=== PATIENT | male | born 1960 | race Caucasian/White ===

== ENCOUNTER 2018-06-05 09:30 | Inpatient (IN) ==
[2018-06-10] MEDS ORDERED: Chlorhexidine Gluconate 2% 1 Pack (2 Cloths) TOPICAL SCH (08:13)
[2018-06-10] MEDS ORDERED: Metoprolol Tartrate 25 MG Tablet PO SCH (08:13)
[2018-06-10] MEDS ORDERED: Chlorhexidine 4% Topical 120 APPLIC/120 ML Bottle TOPICAL SCH (08:15)
[2018-06-10] MEDS ORDERED: Sodium Chlor 0.9% Inj 60 ML, Bupivacaine Liposo PF 1.3% Inj 20 ML P-ARTICULR ONE ×2 (08:15)
[2018-06-10] MEDS ORDERED: Sodium Chlor 0.9% Inj 500 ML IV.SIG SCH (09:00)
[2018-06-10] MEDS ORDERED: Vancomycin Inj 1,000 MG in Sodium Chlor 0.9% Inj 250 ML IV.SIG SCH (09:00)
[2018-06-10] MEDS ORDERED: ceFAZolin 2 GM Premix Inj 2 GM/50 ML PIGGYBACK IV.SIG SCH (09:00)
[2018-06-10] MEDS ORDERED: Sodium Chlor 0.9% Inj 60 ML, Bupivacaine Liposo PF 1.3% Inj 20 ML, Bupivacaine/Epi PF 0... P-ARTICULR SCH ×3 (10:00)
[2018-06-10] MEDS ORDERED: SODIUM CHLOR 0.9% IV.SIG SCH (10:00)
[2018-06-10] MEDS ORDERED: TRANEXAMIC ACID IV.SIG SCH (10:00)
[2018-06-10] MEDS ORDERED: Post-op Orders (for Pharmacy) OTHER STA (13:29)
[2018-06-10] MEDS ORDERED: Temazepam 15 MG Capsule PO PRN (13:29)
[2018-06-10] MEDS ORDERED: Morphine Inj 4 MG/ML Vial IV.PUSH PRN (13:29)
[2018-06-10] MEDS ORDERED: Bisacodyl 10 MG Supp RECTAL PRN (13:29)
--- NOTE | 2018-06-10 13:33 | P.OP ---
- Preoperative Diagnosis (1) Osteoarthritis of left hip - Postoperative Diagnosis (1) Osteoarthritis of left hip Date of procedure: 06/10/18 Procedure: Left total hip arthroplasty, direct anterior exposure Anesthesia: GETA Surgeon: Wade Saldana MD Database Programmer Analyst: Mini Peacock PA-C Operation and Findings: EBL: 250 cc INDICATION: This patient is a 58-year-old male with severe bilateral hip pain related to acetabular impingement with severe osteoarthritis. He presents for surgical treatment. NOTE: Mini Peacock PA-C was present for the entire surgical procedure as my first assist. In my medical opinion her skill and care was necessary for the proper management of this patient. COMPONENTS: COMPANY: [employer] CUP: [place], 56 mm, 100 series STEM: [place], size 12, high offset HEAD: Ceramic, 36 mm, +5, 12/14 taper LINER: Polyethylene, 36, neutral, Altrex PROCEDURE: This patient was brought to the operating room and anesthetized in the supine position. The patient was positioned on the [place] table with the operative leg extended and the contralateral leg held position. The hip and leg was scrubbed with alcohol followed by Hibiclens followed by ChloraPrep and draped sterilely in the clean air suite. Preoperative fluoroscopic images were utilized. A templating x-ray was obtained and printed to be used during the case. A timeout was done and antibiotics were given within a routine time window. A 4 inch incision was made starting 2 cm distal and 2 cm lateral to the anterior superior iliac spine. The tensor fascia jimmy fascia was identified and opened longitudinally in line with the incision. Deep retraction allowed good visualization in the interval between the tensor fascia jimmy and the rectus and this was opened further. The posterior fascia was opened. Crossing vessels were coagulated appropriately. The anterior aspect of the hip capsule was identified. Retractors were placed above and below the capsule. The capsule was opened longitudinally. Stay sutures were utilized creating flaps for the anterior capsule. The femoral neck was cut at the right location and completed with an oscillating saw. The head and neck was removed and taken to the back table. The leg was externally rotated 60 degrees and traction placed on the extremity. The labrum was excised. A portion of the capsule was excised. Visibility was excellent. Retractors were positioned. Starting 6 mm from the final size reamer, we began reaming up to 1 mm from the anticipated size. This was visualized under fluoroscopy. A trial cup was positioned. This also was visualized under fluoroscopy and minor adjustments were made. The final preparation with a 56 reamer was utilized. The final cup was positioned in approximately 40 degrees of abduction and 20 degrees of forward flexion. This is visualized under fluoroscopy and was seated into the final position. Position was very satisfactory. A single hole eliminator was positioned followed by the plastic liner. The final solution was excellent. Traction was let off. The leg was brought into neutral rotation. A lifting took was positioned underneath the greater trochanter and proximal femur. The leg was maximally X rotated and the foot drop to the floor across midline. Retractors were positioned. A box osteotome was used to gain entrance into the top of the femur. The canal was probed with a finder to ensure that we are within the canal. Successive broaching up to the final stem size was accomplished. Trial reduction showed excellent balancing. Adjustments were made. The wound was irrigated copiously and the canal irrigated. The final stem was inserted in proper orientation. Trial again was trialed and the final head side was impacted. The hip was reduced and with 60 degrees of external rotation the leg to be dropped to the floor without evidence of anterior subluxation. Intraoperative x-rays were obtained. Local anesthesia was utilized for a field block including posterior capsule, inferior capsule, cephalad capsule, region of the greater trochanter, tensor fascia jimmy and subcutaneous tissue. The anterior capsule was repaired with interrupted #2 Tycron sutures. The fascia was run with 0 PDS on a loop. Subcutaneous tissue was approximated 2-0 Vicryl suture and skin with running intradermal 3-0 Vicryl followed by benzoin and Steri-Strips. A sterile dressing was applied. The patient was awakened and taken to the recovery room in satisfactory condition FINDINGS: There was severe osteoarthritis with large circumferential osteophytes around the acetabulum. The final solution appeared to be excellent. There is no complication that was appreciated.
--- NOTE | 2018-06-10 13:34 | P.DCO ---
- Physical Therapy Physical Therapy: Gait training (3 times weekly for 2 weeks) Hip: Total hip Left Lower Extremity Weight Bearing: Weight bearing as tolerated - Nursing Dressing changes: Do not change dressing - Certification Need for Home Health services: I have seen patient Magdalene Davidson on 06/10/18. My clinical findings support the need for the requested home health care services because: Homebound Certification: I certify that my clinical findings support that this patient is homebound because:
[2018-06-10] MEDS ORDERED: *morphine SULFATE 10 MG/ML PERIprocedure ONLY ONE ×2 (13:44→14:08)
[2018-06-10] MEDS ORDERED: fentaNYL Citrate Inj 100 MCG/2 ML Ampul ONE (13:46)
--- NOTE | 2018-06-10 14:02 | XR ---
EXAM DATE: 06/10/2018 1:42 PM EST AGE/SEX: 58 years / Male INDICATIONS: Left total hip replacement. CLINICAL DATA: This is the patient's initial encounter. Patient reports that signs and symptoms have been present for 1 day and indicates a pain score of Nonresponsive. MEDICAL/SURGICAL HISTORY: None. None. COMPARISON: No prior exams available for comparison. FINDINGS: Post surgical changes following hip replacement are noted. Acetabular and femoral components are well seated and satisfactorily aligned. There are no acute bony abnormalities. CONCLUSION: Satisfactory postoperative appearance of the left hip status post replacement. Electronically signed by: Alfredo Archibald MD 06/10/2018 2:00 PM EST
[2018-06-10] MEDS: ceFAZolin 1 GM Premix Inj 1 GM/50 ML FROZ.PIGGY IV.SIG SCH (18:08)
[2018-06-10] MEDS: Senna/Docusate Sodium 8.6/50 MG Tablet PO SCH (20:42)
[2018-06-10] MEDS: Multivitamin/Minerals Therapeutic Tablet PO SCH (20:42)
--- NOTE | 2018-06-10 21:23 | P.DS ---
Date of admission: 06/10/18 07:49 Primary care physician: Ric Hilario MD Attending physician on discharge: Wade Saldana Anticipated date of discharge: 06/11/18 Brief History from admission: Mr. Davidson has had ongoing hip pain for... DS: Diagnosis - Discharge Diagnosis (1) Osteoarthritis of left hip Status: Acute DS: Medications - Discharge Medications Prescriptions: hydrocodone-acetaminophen 1 tab PO Q4H PRN #42 tab PRN Reason: Acute Pain DS: Summary Hospital Course: Surgical treatment was performed on the day of admission without complication. He recovered well in PACU and was transferred to the orthopaedic floor. Pain was controlled with IV and oral medications. He was compliant with physical therapy and all total joint precautions. After __ days he was found to be stable and discharged home with home health care. He was given instruction to continue his therapy, to pursue a high fiber diet and to ice the operative limb twice daily. He was given prescriptions for [place] and ASA. - Time Spent with Patient Total time spent providing and/or coordinating discharge services: Greater than 30 minutes - Quality: VTE Deep Vein Thrombosis/Pulmonary Embolism Present on Admission: No Exam Vital signs: Vital Signs 06/10/18 08:58 06/10/18 13:41 06/10/18 13:45 Temperature 98.0 F 97.7 F Pulse Rate 61 87 76 Respiratory Rate 20 21 21 Blood Pressure 142/89 H 129/82 129/82 Pulse Oximetry 96 96 95 06/10/18 14:00 06/10/18 14:15 06/10/18 14:30 Temperature 98.0 F Pulse Rate 65 69 72 Respiratory Rate 20 21 23 Blood Pressure 140/87 127/77 144/82 H Pulse Oximetry 97 96 96 06/10/18 16:00 06/10/18 20:00 Temperature 97.5 F L 98.0 F Pulse Rate 64 67 Respiratory Rate 18 17 Blood Pressure 121/80 127/84 Pulse Oximetry 92 L 97 Intake & Output 06/10/18 06/10/18 06/11/18 06:59 18:59 06:59 Intake Total 1308.05 / 1308.05 Output Total 200 / 200 Balance 1108.05 / 1108.05 Weight 80.5 kg Intake: IV 408.05 / 408.05 Cyklokapron Inj 805 MG In NS 108.05 / 108.05 Inj 100 ML @ 200 mls/hr IV.SIG ONCE [facility] Rx#:[id number] Vancomycin Inj 1,000 MG In NS 250 / 250 Inj 250 ML @ 250 mls/hr IV.SIG [employer] [facility] Rx#:[id number] Ancef 2 GM Premix Inj 2 gm In 50 / 50 50 ml @ 100 mls/hr IV.SIG [employer] [facility] Rx#:[id number] Anesthesia Amount 900 / 900 Output: Estimated Blood Loss 200 / 200 Other: Date of Last Bowel Movement 06/09/18 Weight On Admission 80.5 kg Results Procedures completed during hospitalization: Left total hip arthroplasty, direct anterior approach Labs on day of discharge: Labs from last 24 hours 06/10/18 05:59 Blood Type O Positive Antibody Screen Negative MTS Gel Crossmatch See Detail - Impressions ITS Impressions Hip X-Ray 06/10/18 00:00 CONCLUSION: Satisfactory postoperative appearance of the left hip status post replacement. Discharge Plan - Discharge Disposition Patient Disposition: /Home Health Service - Discharge Condition Condition: Good - Discharge Order Discharge Orders: Discharge Order (Routine); Ordered 06/11/18 Ordered By: Wade Saldana - Discharge Details Anticipated Discharge Date: 06/11/18 - Physicians Team Primary Care Provider: Ric Hilario Attending Provider: Wade Saldana - Rxs /Orders / Referrals /Forms Prescriptions: New aspirin 81 mg Tablet,Chewable 81 mg PO BID 30 Days Qty: 60 RF: 0 hydrocodone-acetaminophen 7.5-325 mg Tablet 1 tab PO Q4H PRN (Reason: Acute Pain) Qty: 42 RF: 0 Continue losartan 50 mg Tablet 50 mg PO DAILY Ambulatory Orders / Order Sets / DME: Adjustable Commode 3-in-1 (1 each) (Routine) Location: Determined by Patient Ordered By: Wade Saldana Walker With Front Wheels (1 each) (Routine) Location: Determined by Patient Ordered By: Wade Saldana Referrals: Ric Hilario MD [Primary Care Provider] - See Instructions - Post Discharge Care Plan Care Plan Goals: Discharge Care Plan Goals for LEFT Total Hip Replacement , anterior approach You had a hip replacement surgery. This means your natural hip was replaced with an artificial joint (prosthesis). You may be recovering at home or in a rehabilitation facility. Either way, you must take care of your new hip. Here are some goals to help you heal well. Directions to Meet your Goals: 1. Activity & Exercises: * Take pain medicine as directed by your doctor. * Dont drive until your doctor says its OK. And never drive while taking opioid pain medicine. * Wear the support stockings you were given in the hospital as directed by your surgeon. * Dont sit for more than 30 to 45 minutes at one time. * Dont lean forward while sitting. * Dont cross your legs. * Keep your feet flat on the floor. Dont turn your foot or leg inward. This stresses your hip joint. * Use an elevated toilet seat for 6 weeks after surgery. * Nap if you are tired, but dont stay in bed all day. * Sit on a firm cushion when you ride in a car and avoid sitting too low. Try not to bend your hip too much when getting in and out of the car. 2. Prevent Falls/Injury: * Follow your doctors orders regarding how much weight to put on the affected leg. * Dont bend at the hip when you bend over. Don't bend at the waist to put on socks and shoes. And avoid picking up items from the floor. * Use a cane, crutches, a walker, or handrails until your balance, flexibility, and strength improve. And remember to ask for help from others when you need it. * Free up your hands so that you can use them to keep balance. Use a krystal pack , apron, or pockets to carry things. * Arrange your household to keep the items you need handy. Keep everything else out of the way. * Remove items that may cause you to fall, such as throw rugs and electrical cords. * Use nonslip bath mats, grab bars, an elevated toilet seat, and a shower chair in your bathroom * Sit on a shower stool or chair when you shower to keep from falling. 3. Precautions: * Prevent infection. Any infection will need to be treated immediately. Call your doctor right away if you think you might have an infection. * Tell your dentist that you have an artificial joint and take antibiotics as prescribed before any dental work. * Tell all your healthcare providers about your artificial joint before any medical procedure. * Maintain a healthy weight. Get help to lose any extra pounds. Added body weight puts stress on the joints. 4. Incision Care: * Prevent infection by washing your hands often. If an infection occurs, it will need to be treated right away. * Call your doctor right away if you think you may have an infection. Symptoms include a fever or an incision that leaks white, green, or yellow fluid. * Don't soak your incision in water until your doctor says its OK. This means no hot tubs, bathtubs, or swimming pools. * Follow your doctor's instructions for changing the dressing. * Dont rub the incision, or apply creams or lotions to it. * If you notice any redness or drainage around the bandage site, contact your surgeon's office immediately. 5. Follow-Up: Do Not miss your follow-up appointment. Keep up with all your appointments and yearly check ups When to call your doctor: Call your doctor right away if you have: Hip pain gets worse Pain or swelling in your calf or leg not related to your incision Tenderness or redness in your calf Fever of 100.4F (38C) or higher, or as directed by your healthcare provider Shaking chills Swelling or redness at the incision site gets worse Fluid draining from the incision Call 911: Call 911 right away if you have: Chest pain Shortness of breath Any pain or tenderness in your calf
[2018-06-11] MEDS: ceFAZolin 1 GM Premix Inj 1 GM/50 ML FROZ.PIGGY IV.SIG SCH ×4 (01:24→17:17)
[2018-06-11 05:37] LABS: Hematocrit 36.1 % (39.0-51.0); Hemoglobin 12.5 gm/dL (13.0-17.0)
[2018-06-11] MEDS: Senna/Docusate Sodium 8.6/50 MG Tablet PO SCH (09:55)
[2018-06-11] MEDS: Multivitamin/Minerals Therapeutic Tablet PO SCH (09:55)
--- NOTE | 2018-06-11 13:12 | P.PNOP ---
Subjective Interval history: He notes moderate left hip pain. Some aching into the thigh. No other concerns. He is 'very tired'. Prefers discharge home. Physical Exam Vital signs: Vital Signs 06/10/18 13:41 06/10/18 13:45 06/10/18 14:00 Temperature 97.7 F Pulse Rate 87 76 65 Respiratory Rate 21 21 20 Blood Pressure 129/82 129/82 140/87 Pulse Oximetry 96 95 97 06/10/18 14:15 06/10/18 14:30 06/10/18 16:00 Temperature 98.0 F 97.5 F L Pulse Rate 69 72 64 Respiratory Rate 21 23 18 Blood Pressure 127/77 144/82 H 121/80 Pulse Oximetry 96 96 92 L 06/10/18 20:00 06/11/18 00:00 06/11/18 04:00 Temperature 98.0 F 98.2 F 98.3 F Pulse Rate 67 86 69 Respiratory Rate 17 17 17 Blood Pressure 127/84 124/83 122/73 Pulse Oximetry 97 95 95 06/11/18 08:00 06/11/18 12:00 Temperature 98.1 F 99.0 F Pulse Rate 66 107 H Respiratory Rate 18 16 Blood Pressure 118/65 130/75 Pulse Oximetry 96 96 Intake & Output 06/10/18 06/11/18 06/11/18 18:59 06:59 18:59 Intake Total 1358.05 / 1358.05 1530 / 1530 1050 / 1050 Output Total 200 / 200 1150 / 1150 Balance 1158.05 / 1158.05 380 / 380 1050 / 1050 Weight 80.5 kg 80.5 kg Intake: IV 458.05 / 458.05 1050 / 1050 1050 / 1050 LR 1000 mL Inj 1,000 ML @ 80 1000 / 1000 1000 / 1000 mls/hr IV.CONT .[id number] [facility] Rx# :[id number] Cyklokapron Inj 805 MG In NS 108.05 / 108.05 Inj 100 ML @ 200 mls/hr IV.SIG ONCE [facility] Rx#:[id number] Vancomycin Inj 1,000 MG In NS 250 / 250 Inj 250 ML @ 250 mls/hr IV.SIG [facility] Rx#:[id number] Ancef 1 GM Premix Inj 1 gm In 50 / 50 50 / 50 50 / 50 50 ml @ 100 mls/hr IV.SIG Q6H [facility] Rx#:[id number] Ancef 2 GM Premix Inj 2 gm In 50 / 50 50 ml @ 100 mls/hr IV.SIG [facility] Rx#:[id number] Oral 480 / 480 Anesthesia Amount 900 / 900 Output: Urine 1150 / 1150 Estimated Blood Loss 200 / 200 Other: Date of Last Bowel Movement 06/09/18 06/09/18 Weight On Admission 80.5 kg Narrative: Sitting in chair at bedside No acute distress Left LE Hip dressing intact, mild SS drainage at inguinal fold, no erythema Mild spasm thigh, +motor at, +sens, +nvi Neg homans - Constitutional no acute distress Results - Labs CBC & Chem 7: 06/11/18 04:14 Laboratory Results - last 24 hr 06/11/18 04:14 Hgb 12.5 L Hct 36.1 L - Imaging Impressions Hip X-Ray 06/10/18 00:00 CONCLUSION: Satisfactory postoperative appearance of the left hip status post replacement. - Procedures Left total hip arthroplasty, direct anterior approach Assessment and Plan - Ortho Post Op Day # 1 - Problem List (1) Osteoarthritis of left hip Code(s): M16.12 - Unilateral primary osteoarthritis, left hip Status: Acute - Assessment and Plan pod#1 s/p L GINNA, anterior Doing well. Moderate postop pain in to the thigh. Ok to d/c home w [facility] after PT today. Hold dressing changes unless saturated. ASA 81mg PO pain meds as needed. PT - Full WBing LLE. GINNA, anterior, precautions. F/U in 2 weeks as scheduled.
[2018-06-11 21:46] VITALS: RESP 18
[2018-06-11 21:47] VITALS: BP 128/64; PULSE 71; TEMP 98.6; O2SAT 93
== END 2018-06-11 21:10 | disposition home health service (06) ==
LOC: HSDI 06-10 07:49 → N06 06-10 14:56
PROVIDERS: ADMIT Orthopaedic Surgery Orthopaedic Surgery of the Spine; ATTEND Orthopaedic Surgery Orthopaedic Surgery of the Spine